=== PATIENT | female | born 1970 | race African-American/Black ===

== ENCOUNTER 2019-11-23 17:36 | Emergency (ER) | payer SELFPAY ==
[~2019-11-23] VITALS: Ht 170.2 cm; Wt 84.0 kg
[2019-11-23 17:44] VITALS: BP 126/86
== END 2019-11-23 18:56 | disposition left against medical advice (07) ==
LOC: ER 17:36
DX: M79.601 Pain in right arm (principal); Z53.21 Procedure and treatment not carried out due to patient leaving prior to being seen by health care provider